=== PATIENT | female | born 1935 | race Caucasian/White ===

== ENCOUNTER → 2017-08-01 16:19 | Outpatient (CLI) | payer MEDICARE, SELFPAY ==
[2016-04-29 20:15] VITALS: BP 107/97; BP 146/96
[2016-05-03 08:00] VITALS: BP 141/85
[2017-03-28 08:34] VITALS: BP 102/59; BP 104/48; BP 114/54
[2017-08-01 15:12] VITALS: BP 145/67; BMI 31.4
[2017-08-01 17:36] LABS: Absolute Lymphocyte Count 1.52 X10^3/ul (0.83-4.51); Absolute Neutrophil Count 2.8 X10^3/uL (2.0-7.7); Basophil# 0.04 X10^3/uL; Basophil% 0.8 % (0-1); Differential Indicated SCAN CRITERIA MET; Eosinophil# 0.08 X10^3/uL; Eosinophils% 1.6 % (0-5); Hematocrit 27.4 % (37-47); Hemoglobin 7.7 g/dl (12.0-15.0); Lymphocyte # 1.52 X10^3/ul (4.0); Lymphocyte % 30.1 % (19-41); Mean Corp Hgb Conc 28.1 g/gl (32-36); Mean Corpuscular Hgb 19.6 pg (27.0-32.0); Mean Corpuscular Volume 69.9 fL (81-99); Monocyte# 0.59 X10^3/uL; Monocyte% 11.7 % (0-10); Neutrophil # 2.81 X10^3/uL (2.7-7.7); Neutrophil % 55.6 % (47-70); POSITIVE COUNT NO; POSITIVE DIFFERENTIAL NO; POSITIVE MORPHOLOGY YES; Platelet Count 305 K/mm3 (150-450); RBC Distribution Width CV 23.5 % (11.6-14.6); RBC Distribution Width SD 59.7 fl (35.1-43.9); Red Blood Count 3.92 M/mm3 (4.2-5.4); White Blood Count 5.1 K/mm3 (4.4-11.0)
[2017-08-01 17:57] LABS: ALB/GLOB Ratio 0.8 RATIO (0.9-2.4); AST(SGOT) 12 U/L (15-37); Alanine Aminotransfer ALT/SGPT 18 U/L (13-56); Albumin, Serum 3.3 g/dL (3.2-5.0); Alkaline Phosphatase 65 U/L (45-117); Anion Gap 8 (5-15); BUN 15 mg/dL (7-18); BUN/Creat Ratio 21.7 RATIO (10-20); Calcium,Total 8.5 mg/dL (8.5-10.1); Chloride 108 mmol/L (98-107); Creatinine, Serum 0.69 mg/dL (0.55-1.02); EST Glomerular Filtration Rate 87 mL/min (>60); Est Glom Filt Rate - Afr Amer 105 mL/min (>60); Ferritin 9 ng/mL (8-252); Globulin 3.9 g/dL (2.2-4.2); Glucose 85 mg/dL (70-110); Iron 12 ug/dL (50-170); Iron Binding Capacity,Total 457 ug/dL (250-450); Potassium 4.2 mmol/L (3.5-5.1); Protein, Total 7.2 g/dL (6.4-8.2); Sodium Level 142 mmol/L (136-145)
[2017-08-01 18:10] LABS: Differential Comment SCANNED
[2017-08-02 08:41] LABS: Vitamin B12 318 pg/mL (211-911)
== END ==
PROVIDERS: Internal Medicine Medical Oncology; Family Provider Family Medicine; PCP Family Medicine; Visit Provider Family Medicine
DX: D50.9 Iron deficiency anemia, unspecified (principal)
CPT/HCPCS: 80053; 82607; 82728; 82746; 83540; 83550; 85025

== ENCOUNTER → 2017-08-20 12:06 | Outpatient (CLI) | payer MEDICARE, SELFPAY ==
[2017-07-16 10:14] VITALS: BP 133/62; PULSE 61; RESP 17; TEMP 36.9; O2SAT 98; BMI 28.5
--- NOTE | 2017-07-16 10:38 | SDCEKG_ITS ---
Test Reason : PRE-OP Blood Pressure : / mmHG Vent. Rate : 056 BPM Atrial Rate : 056 BPM P-R Int : 168 ms QRS Dur : 074 ms QT Int : 436 ms P-R-T Axes : 056 023 055 degrees QTc Int : 420 ms Sinus bradycardia Otherwise normal ECG Confirmed by NAPOLEON LEE, BRITANY ([id number]), business editor DAVEY CERNA ([id number] on 07/18/2017 1:08:01 PM Referred By: SELVIN Confirmed By:BRITANY BENDER MD
[2017-07-16 12:56] LABS: Absolute Lymphocyte Count 1.19 X10^3/ul (0.83-4.51); Absolute Neutrophil Count 2.7 X10^3/uL (2.0-7.7); Basophil# 0.03 X10^3/uL; Basophil% 0.7 % (0-1); Eosinophil# 0.06 X10^3/uL; Eosinophils% 1.3 % (0-5); Hematocrit 23.5 % (37-47); Hemoglobin 6.5 g/dl (12.0-15.0); Lymphocyte # 1.19 X10^3/ul (4.0); Lymphocyte % 26.5 % (19-41); Mean Corp Hgb Conc 27.7 g/gl (32-36); Mean Corpuscular Hgb 18.5 pg (27.0-32.0); Mean Corpuscular Volume 66.8 fL (81-99); Mean Platelet Vol. 10.1 fl (6.2-12.0); Monocyte# 0.51 X10^3/uL; Monocyte% 11.4 % (0-10); Neutrophil # 2.69 X10^3/uL (2.7-7.7); Neutrophil % 59.9 % (47-70); Platelet Count 285 K/mm3 (150-450); RBC Distribution Width CV 19.7 % (11.6-14.6); RBC Distribution Width SD 47.7 fl (35.1-43.9); Red Blood Count 3.52 M/mm3 (4.2-5.4); White Blood Count 4.5 K/mm3 (4.4-11.0)
[2017-07-16 12:57] LABS: Differential Indicated SCAN CRITERIA MET; POSITIVE COUNT NO; POSITIVE DIFFERENTIAL NO; POSITIVE MORPHOLOGY YES
[2017-07-16 13:19] LABS: Anion Gap 10 (5-15); BUN 11 mg/dL (7-18); BUN/Creat Ratio 22.5 RATIO (10-20); Calcium,Total 8.5 mg/dL (8.5-10.1); Chloride 106 mmol/L (98-107); Creatinine, Serum 0.49 mg/dL (0.55-1.02); EST Glomerular Filtration Rate 129 mL/min (>60); Est Glom Filt Rate - Afr Amer 156 mL/min (>60); Glucose 80 mg/dL (70-110); Potassium 4.1 mmol/L (3.5-5.1); Sodium Level 140 mmol/L (136-145)
[2017-07-16 13:26] LABS: Anisocytosis 1+; Hypochromasia 3+; Microcytosis 2+; Platelet Estimate ADEQUATE (ADEQ); Schistocytes 1+
== END ==
PROVIDERS: Family Provider Family Medicine; PCP Family Medicine; Visit Provider Specialist
DX: Z01.818 Encounter for other preprocedural examination (principal)
CPT/HCPCS: 80048; 85025; 87081

== ENCOUNTER 2017-09-18 20:57 | Observation (INO) | payer MEDICARE, SELFPAY ==
[2017-09-18 21:00] VITALS: BP 147/59; PULSE 58; RESP 18; TEMP 36.4; O2SAT 99; BMI 29.9
--- NOTE | 2017-09-18 21:09 | CT_ITS ---
STUDY: CT CHEST WITH CONTRAST REASON FOR EXAM: Female, 82 years old. Chest pain after falling onto her walker. RADIATION DOSAGE (If Supplied By Facility): CTDIvol = ( 15.75 ) mGy, DLP = ( 1502.18 ) mGycm TECHNIQUE: Transaxial imaging was performed following intravenous administration of 100 ml of Isovue 300 contrast material. Multiplanar coronal and sagittal images were reformatted. Individualized dose optimization techniques were used for this CT. COMPARISON: Prior portable chest radiograph of April 29, 2016 FINDINGS: Negative for pneumothorax. Mild bibasilar dependent atelectatic versus chronic changes. Discrete linear area of atelectasis or scarring in the anterior right upper lobe. Minimal linear atelectasis or scarring in the lingula. 10 x 5 mm pulmonary nodule of the right upper lobe abutting the oblique fissure, image 46 series 6. Normal heart and pericardium. Large hiatal hernia. Normal hilar regions. Normal enhanced pulmonary arteries. There is atherosclerotic calcification of the aortic arch with tortuosity and elongation of the aortic arch and descending thoracic aorta. There is a mild angular deformity of the distal sternum a centimeter above the xiphoid which could be an acute sternal fracture however associated hematoma is not obvious. The remainder of the sternum and manubrium are intact. Negative for fracture of the ribs, clavicles or scapulas. Demineralized osseous structures. Multiple mild superior endplate compression deformities at T11, T10 T7 and T2 without an acute thoracic compression deformity. 11 x 10 mm millimeter and a 8 x 11 nodule of the left thyroid. CT/Chest WITH Contrast IMPRESSION: Slight angular or buckle-type deformity of the inferior sternum about 1 cm above the xiphoid consistent with a sternal fracture, indeterminate age. There does not appear to be a large associated retrosternal or chest wall hernia. Otherwise negative for acute thoracic fracture of the thoracic spine, manubrium, ribs, clavicle or scapulae. Mild bibasilar dependent atelectatic versus chronic changes. Additional discrete linear areas of atelectasis or scarring in the right middle lobe and lingula. Negative for major consolidation, pneumothorax or pleural effusion. 10 x 5 mm nodule of the right upper lobe. This is apparent on prior chest radiography of February 28, 2016 and appears stable. Large hiatal hernia. Atherosclerosis. There are a 11 x 10 mm and 8 x 11 mm nodules of the left thyroid. Nodules of this size require no specific follow-up unless otherwise clinically indicated. Electronically Signed: Joaquina Canales MD at 22:41 EDT , Service support ,
--- NOTE | 2017-09-18 21:09 | EKG12_ITS ---
Test Reason : Blood Pressure : / mmHG Vent. Rate : 063 BPM Atrial Rate : 063 BPM P-R Int : 178 ms QRS Dur : 076 ms QT Int : 418 ms P-R-T Axes : 078 021 050 degrees QTc Int : 427 ms Normal sinus rhythm Normal ECG Confirmed by TRINA RODGERS MD ([id number]), visual effects editor DAVEY CERNA ([id number] on 09/20/2017 2:46:23 PM Referred By: ETHEL Confirmed By:TRINA RODGERS MD
--- NOTE | 2017-09-18 21:09 | CT_ITS ---
STUDY: CT ABDOMEN AND PELVIS WITH CONTRAST REASON FOR EXAM: Female, 82 years old. Chest pain after falling onto her walker. RADIATION DOSAGE (If Supplied By Facility): CTDIvol = ( 15.75 ) mGy, DLP = ( 1502.18 ) mGycm TECHNIQUE: Transaxial images were obtained from the dome of the diaphragm to the symphysis pubis without oral contrast. 100 ml of Isovue 300 contrast was administered. Sagittal and coronal images were reconstructed. Individualized dose optimization techniques were used for this CT. COMPARISON: None. FINDINGS: Bibasilar atelectatic versus chronic changes. The visualized portions of the heart are within normal limits. Elongated right liver lobe, James's lobe normal variant. Multiple moderate size gallstones in a nondistended gallbladder. Normal spleen. Normal pancreas. Normal bilateral adrenal glands. 1 shallow cortical scar of the upper mid pole of the right kidney and one small mid pole exophytic cyst. Otherwise normal right kidney without hydronephrosis or stones. Normal size of the left kidney. 1.4 cm simple cyst of the midpole and several additional subcentimeter simple cysts. Negative for hydronephrosis or stones. Large hiatal hernia. Otherwise unremarkable stomach. Normal small intestine. Diverticulosis of the colon without evidence of acute diverticulitis. There is non-visualization of the appendix. There is diffuse atherosclerotic calcification of the abdominal aorta, without a demonstrated aneurysm. Normal inferior vena cava. Normal retroperitoneum. Nondistended intact urinary bladder. 1.6 cm left ovarian or paraovarian cyst. Small fatty umbilical hernia. Negative for a large abdominal wall hematoma. Demineralized osseous structures. Old superior endplate compression deformities of L4 T10 and T11. Disc related central endplate compression of L3. Negative for acute fracture of the lumbar spine. The negative for an inferior rib fracture. Negative for fracture of the pelvis, sacrum or hips. Advanced osteoarthritis of the left hip. CT/Abdomen/Pelvis W IV Cont ONLY IMPRESSION: No acute solid organ or bowel related injury. Negative for acute fracture of the lumbar spine, lower ribs, sacrum, pelvis or hips. Old compression deformities and degenerative changes as stated above. Large hiatal hernia Cholelithiasis Simple renal cysts bilaterally Diverticulosis Atherosclerosis 1.6 cm left ovarian or paraovarian cyst Small fatty umbilical hernia. Electronically Signed: Joaquina Canales MD at 22:26 EDT , Service support ,
[2017-09-18] MEDS: 0.9% Normal Saline 1,000 ML 150 ML IV (21:20)
[2017-09-18 21:53] LABS: ALB/GLOB Ratio 0.8 RATIO (0.9-2.4); AST(SGOT) 22 U/L (15-37); Alanine Aminotransfer ALT/SGPT 20 U/L (13-56); Albumin, Serum 3.3 g/dL (3.2-5.0); Alkaline Phosphatase 72 U/L (45-117); Anion Gap 6 (5-15); BUN 14 mg/dL (7-18); BUN/Creat Ratio 20.3 RATIO (10-20); Calcium,Total 8.6 mg/dL (8.5-10.1); Chloride 105 mmol/L (98-107); Creatinine, Serum 0.69 mg/dL (0.55-1.02); EST Glomerular Filtration Rate 87 mL/min (>60); Est Glom Filt Rate - Afr Amer 105 mL/min (>60); Globulin 4.1 g/dL (2.2-4.2); Glucose 92 mg/dL (74-106); Lipase 246 U/L (73-393); Potassium 4.7 mmol/L (3.5-5.1); Protein, Total 7.4 g/dL (6.4-8.2); Sodium Level 140 mmol/L (136-145)
[2017-09-18 22:00] LABS: Absolute Lymphocyte Count 1.18 X10^3/ul (0.83-4.51); Absolute Neutrophil Count 6.9 X10^3/uL (2.0-7.7); Basophil# 0.02 X10^3/uL; Basophil% 0.2 % (0-1); Eosinophil# 0.08 X10^3/uL; Eosinophils% 0.9 % (0-5); Hematocrit 39.9 % (37-47); Hemoglobin 12.1 g/dl (12.0-15.0); Lymphocyte # 1.18 X10^3/ul (4.0); Lymphocyte % 13.1 % (19-41); Mean Corp Hgb Conc 30.3 g/gl (32-36); Mean Corpuscular Hgb 26.5 pg (27.0-32.0); Mean Corpuscular Volume 87.5 fL (81-99); Monocyte# 0.85 X10^3/uL; Monocyte% 9.4 % (0-10); Neutrophil # 6.85 X10^3/uL (2.7-7.7); Neutrophil % 76.2 % (47-70); Platelet Count 218 K/mm3 (150-450); Red Blood Count 4.56 M/mm3 (4.2-5.4)
[2017-09-18] MEDS: fentaNYL 100 MCG/2 ML Ampul 25 MCG IV (22:06)
[2017-09-18 22:22] LABS: Differential Indicated SCAN CRITERIA MET; POSITIVE COUNT NO; POSITIVE DIFFERENTIAL NO; POSITIVE MORPHOLOGY YES
[2017-09-18 22:31] LABS: Differential Comment SCANNED
[2017-09-18 23:02] VITALS: BP 145/58; PULSE 62; RESP 18; O2SAT 94
[2017-09-18 23:17] VITALS: BP 134/69; PULSE 63; RESP 18; O2SAT 94
--- NOTE | 2017-09-18 23:19 | ED.VISSUMM ---
- ER Visit Summary Date of Service: 09/18/17 Chief Complaint: [Fall and injury to chest] History of Present Illness: The patient is a 82 F ] presents to the emergency department with a fall that occurred approximately 5:30 PM. Patient was bending over reaching into the pocket of her walker when she lost her balance and fell on top of her walker injuring her chest. Patient complains of pain with movement and deep breath. Patient denies any nausea or vomiting. Describes the pain as spasms and severe. Patient denies striking her head. Denies loss of consciousness. Denies any neck pain. Patient denies any vomiting. Patient lives at assisted living facility and normally uses a walker to ambulate. Physical Examination: [HEENT-PERRLA, EOMI. Cranial nerves II through XII grossly intact. TMs clear. Mucous membranes moist. No adenopathy. No C-spine tenderness on palpation with normal active range of motion. Cardiovascular-regular rate and rhythm without murmur or ectopy Lungs-clear to auscultation, chest wall stable without crepitus or subcu emphysema. Patient has tenderness to palpation over the sternum to inferior aspect. No significant ecchymosis or bruising noted. Abdomen-normoactive bowel sounds, soft. Patient has tenderness to the epigastric and right upper quadrant. Patient is guarding. There is no rebound, rigidity or peritoneal signs. Extremities-intact ?4, normal range of motion, normal pulses, atraumatic] Test Results: [EKG obtained on arrival showed a sinus rhythm with a ventricular rate of 63 bpm with no acute ST segment changes. CBC with differential showed a white count of 9.0, hemoglobin 12, hematocrit 40, platelets 218. Chemistries were normal. Liver enzymes were normal. CT scan of the abdomen and pelvis showed a large hiatal hernia, cholelithiasis, diverticulosis. Patient CT chest showed a suspected fracture of the inferior portion of the sternum. No significant hematoma noted. No pneumothorax or rib fracture is noted. Patient had some thyroid nodules noted and the nodule in the right upper lobe that appeared stable.] Emergency Department Course and Treatment: [Patient was medicated with fentanyl initially and continued to complain of pain therefore she was given morphine and Zofran.] Treatment Plan: [Admit for pain control] Disposition: [Admit] Impression: [Mechanical fall Sternum fracture Intractable pain] This note was generated with Spritzation software. It may contain incorrect words, spelling, and punctuation that were not noted in review of the chart prior to signing ED Disposition - Plan for ED Patient: Chief Complaint: Fall Referrals: Jose Aguilar MD [Primary Care Provider] -
--- NOTE | 2017-09-18 23:24 | ED.DCSUM_ITS ---
- ER Visit Summary Date of Service: 09/18/17 Chief Complaint: [Fall and injury to chest] History of Present Illness: The patient is a 82 F ] presents to the emergency department with a fall that occurred approximately 5:30 PM. Patient was bending over reaching into the pocket of her walker when she lost her balance and fell on top of her walker injuring her chest. Patient complains of pain with movement and deep breath. Patient denies any nausea or vomiting. Describes the pain as spasms and severe. Patient denies striking her head. Denies loss of consciousness. Denies any neck pain. Patient denies any vomiting. Patient lives at assisted living facility and normally uses a walker to ambulate. Physical Examination: [HEENT-PERRLA, EOMI. Cranial nerves II through XII grossly intact. TMs clear. Mucous membranes moist. No adenopathy. No C- spine tenderness on palpation with normal active range of motion. Cardiovascular-regular rate and rhythm without murmur or ectopy Lungs-clear to auscultation, chest wall stable without crepitus or subcu emphysema. Patient has tenderness to palpation over the sternum to inferior aspect. No significant ecchymosis or bruising noted. Abdomen-normoactive bowel sounds, soft. Patient has tenderness to the epigastric and right upper quadrant. Patient is guarding. There is no rebound , rigidity or peritoneal signs. Extremities-intact ?4, normal range of motion, normal pulses, atraumatic] Test Results: [EKG obtained on arrival showed a sinus rhythm with a ventricular rate of 63 bpm with no acute ST segment changes. CBC with differential showed a white count of 9.0, hemoglobin 12, hematocrit 40, platelets 218. Chemistries were normal. Liver enzymes were normal. CT scan of the abdomen and pelvis showed a large hiatal hernia, cholelithiasis, diverticulosis. Patient CT chest showed a suspected fracture of the inferior portion of the sternum. No significant hematoma noted. No pneumothorax or rib fracture is noted. Patient had some thyroid nodules noted and the nodule in the right upper lobe that appeared stable.] Emergency Department Course and Treatment: [Patient was medicated with fentanyl initially and continued to complain of pain therefore she was given morphine and Zofran.] Treatment Plan: [Admit for pain control] Disposition: [Admit] Impression: [Mechanical fall Sternum fracture Intractable pain] This note was generated with Agentrunation software. It may contain incorrect words, spelling, and punctuation that were not noted in review of the chart prior to signing ED Disposition - Plan for ED Patient: Chief Complaint: Fall Referrals: Jose Agiular MD [Primary Care Provider] -
[2017-09-18] MEDS: Morphine 4 MG/ML Syringe IV (23:29)
[2017-09-18] MEDS: Ondansetron 4 MG/2 ML Vial IV (23:29)
--- NOTE | 2017-09-18 23:34 | PCM.HP.STD ---
Problem List (1) Sternal fracture Status: Acute (2) Iron deficiency anemia Status: Resolved Qualifiers: History of Present Illness Date of Admission: 09/18/17 Chief Complaint: fall and chest pain. The patient is a 82 year old F was leaning over her walker to get some the bag and then fell forward hitting her chest on her walker. Patient did not hit her head nor lose consciousness. Patient has been having severe anterior chest pain since then. Patient presented to the emergency room for the severe pain. He underwent a workup that did show a sternal fracture on chest CT. Patient received fentanyl and morphine in the emergency room and is feeling better but is a little bit groggy with the medications. Patient denies falls but looking back patient was hospitalized 2016 and have the rhabdomyolysis. [] Past Medical History Past Medical History (Chronic Problems): Chronic Problems (Last Reviewed 08/29/17 @ 10:54 by Anushka Stein) history of left radius and ulnar fracture (Chronic) Allergies No Known Allergies Allergy (Verified 09/18/17 21:05) Home Medications: Ambulatory Orders Medication Instructions Recorded Cholecalciferol (Vitamin D3) 2,000 units PO DAILY 08/01/17 [Vitamin D3] One Daily Womens 50 Plus Tab PO DAILY 08/01/17 Surgical History: no surgical history Psychiatric History: No pertinent psych hx Smoking Status: Never smoker Tobacco Use: Non-smoker Alcohol: None Drugs: None - *Family History Maternal History Items: No pertinent history, - - No heart disease Review of Systems Constitutional: Denies: Chills, Fever, Weight Change Eyes: Denies: Blurred vision, Double vision HEENT: Denies: Head Aches, Sinus Congestion, Sinus Drainage Cardiovascular: Reports: Chest Pain - Status post fall. Denies: Palpitations Respiratory: Denies: Cough, Shortness of breath at rest, Sputum production Gastrointestinal: Denies: Abdominal Pain, Nausea, Vomiting Genitourinary: Denies: Dysuria Musculoskeletal: Denies: Joint Pain, Joint Tenderness Skin: Denies: Rash, Wounds Neurological: Denies: Numbness, Tingling, Focal weakness Psychiatric: Denies: Anxiety, Depression Hematologic/ Lymphatic: Denies: Easy Bruising, Easy Bleeding, Hx of blood clot VTE Information - Inpt Only VTE Present on Admission: No VTE Pharm Prophylaxis ordered?: Yes Patient Problems: Active and Suspected Problems (Last Reviewed 08/29/17 @ 10:54 by Anushka Stein) Sternal fracture (Acute) - Physical Exam General: Alert, No apparent distress, - - Slightly groggy. HEENT: Atraumatic, Normocephalic, - - No scleral icterus Oral: Moist Mucosa, No Gingival or Mucosal Lesions/ Ulcerations Neck: No Nodes, Thyroid Normal Size and Texture Lungs: Clear to auscultation, Normal air movement, No rhonchi, No wheeze Cardiovascular: Regular rate, Regular Rhythm, Normal S1, Normal S2, No murmurs Abdomen: Bowel Sounds Present, Soft, Non Tender, Non-Distended, No Hepato-splenomegaly Extremities: No edema, No Calf Tenderness Skin: No rashes, No breakdown Musculoskeletal: - - Tenderness to very mild palpation of the anterior sternum Psych/Mental Status: Normal Affect, Appropriate Vital Signs Temp Pulse Resp BP Pulse Ox 36.4 C L 63 18 134/69 H 94 09/18/17 21:00 09/18/17 23:17 09/18/17 23:17 09/18/17 23:17 09/18/17 23:17 Oxygen Delivery Method Room Air Weight: 79.2 kg Body Mass Index (BMI) 29.9 Laboratory Tests Past 24 Hrs 09/18/17 09/18/17 21:17 21:17 WBC 9.0 RBC 4.56 Hgb 12.1 Hct 39.9 MCV 87.5 MCH 26.5 L MCHC 30.3 L RDW TNP RDW Differential TNP Plt Count 218 MPV TNP Immature Gran % (Auto) 0.200 Neut % (Auto) 76.2 H Lymph % (Auto) 13.1 L [place] % (Auto) 9.4 Eos % (Auto) 0.9 Baso % (Auto) 0.2 Absolute Neuts (auto) 6.9 Absolute Lymphs (auto) 1.18 Total Counted Not Reportable Differential Comment SCANNED Sodium 140 Potassium 4.7 Chloride 105 Carbon Dioxide 29.0 Anion Gap 6 BUN 14 Creatinine 0.69 Estim Creat Clear Calc 38.10 Est GFR (MDRD) Af Amer 105 Est GFR (MDRD) Non-Af 87 BUN/Creatinine Ratio 20.3 H Glucose 92 Calcium 8.6 Total Bilirubin 0.20 AST 22 ALT 20 Alkaline Phosphatase 72 Troponin I < 0.02 Total Protein 7.4 Albumin 3.3 Globulin 4.1 Albumin/Globulin Ratio 0.8 L Lipase 246 Assessment/Plan Active and Suspected Problems (Last Reviewed 08/29/17 @ 10:54 by Anushka Stein) Sternal fracture (Acute) 1. Sternal fracture That is post fall onto her walker Continue with pain control but patient little bit groggy some prefer to use nonnarcotics for pain control. Patient will have oxycodone as needed but in the meantime patient will have a Tylenol and Toradol. Given the patient's fall history and fractures, will check a 25 hydroxy vitamin D level 2. Debility This was more of a mechanical fall that the patient had but given the fact patient uses a walker and she has a sternal fracture patient is can be more limited in regards to her mobility and putting pressure with her arms on the walker. Will have physical and occupational therapy evaluate the patient 3. DVT prophylaxis with Lovenox 4. Disposition: Patient is under observation status. This is brought up to the patient and will have case management look into what options are and if this will she will be covered for shelter facility upon discharge. Patient has no one available to help her 24 7. Other possibilities could be the facility increased services but once again will defer to case management in regards to this. 5. Advance directives: Discussed CPR and chemical ventilation with the patient. Patient is unsure what she wants at this time. Informed the patient and her friend that do not dissipate in these issues during his hospitalization but is certainly good conversation have in the future so that her wishes are fully addressed. Therefore, patient will be full CODE STATUS. Code Visit OBSV E&M: 80490 Initial observation care L2
--- NOTE | 2017-09-18 23:40 | HP.PCM_ITS ---
Problem List (1) Sternal fracture Status: Acute (2) Iron deficiency anemia Status: Resolved Qualifiers: History of Present Illness Date of Admission: 09/18/17 Chief Complaint: fall and chest pain. The patient is a 82 year old F was leaning over her walker to get some the bag and then fell forward hitting her chest on her walker. Patient did not hit her head nor lose consciousness. Patient has been having severe anterior chest pain since then. Patient presented to the emergency room for the severe pain. He underwent a workup that did show a sternal fracture on chest CT. Patient received fentanyl and morphine in the emergency room and is feeling better but is a little bit groggy with the medications. Patient denies falls but looking back patient was hospitalized 2016 and have the rhabdomyolysis. [] Past Medical History Past Medical History (Chronic Problems): Chronic Problems (Last Reviewed 08/29/17 @ 10:54 by Anushka Stein) history of left radius and ulnar fracture (Chronic) Allergies No Known Allergies Allergy (Verified 09/18/17 21:05) Home Medications: Ambulatory Orders Medication Instructions Recorded Cholecalciferol (Vitamin D3) 2,000 units PO DAILY 08/01/17 [Vitamin D3] One Daily Womens 50 Plus Tab PO DAILY 08/01/17 Surgical History: no surgical history Psychiatric History: No pertinent psych hx Smoking Status: Never smoker Tobacco Use: Non-smoker Alcohol: None Drugs: None - *Family History Maternal History Items: No pertinent history, - - No heart disease Review of Systems Constitutional: Denies: Chills, Fever, Weight Change Eyes: Denies: Blurred vision, Double vision HEENT: Denies: Head Aches, Sinus Congestion, Sinus Drainage Cardiovascular: Reports: Chest Pain - Status post fall. Denies: Palpitations Respiratory: Denies: Cough, Shortness of breath at rest, Sputum production Gastrointestinal: Denies: Abdominal Pain, Nausea, Vomiting Genitourinary: Denies: Dysuria Musculoskeletal: Denies: Joint Pain, Joint Tenderness Skin: Denies: Rash, Wounds Neurological: Denies: Numbness, Tingling, Focal weakness Psychiatric: Denies: Anxiety, Depression Hematologic/ Lymphatic: Denies: Easy Bruising, Easy Bleeding, Hx of blood clot VTE Information - Inpt Only VTE Present on Admission: No VTE Pharm Prophylaxis ordered?: Yes Patient Problems: Active and Suspected Problems (Last Reviewed 08/29/17 @ 10:54 by Anushka Stein) Sternal fracture (Acute) - Physical Exam General: Alert, No apparent distress, - - Slightly groggy. HEENT: Atraumatic, Normocephalic, - - No scleral icterus Oral: Moist Mucosa, No Gingival or Mucosal Lesions/ Ulcerations Neck: No Nodes, Thyroid Normal Size and Texture Lungs: Clear to auscultation, Normal air movement, No rhonchi, No wheeze Cardiovascular: Regular rate, Regular Rhythm, Normal S1, Normal S2, No murmurs Abdomen: Bowel Sounds Present, Soft, Non Tender, Non-Distended, No Hepato- splenomegaly Extremities: No edema, No Calf Tenderness Skin: No rashes, No breakdown Musculoskeletal: - - Tenderness to very mild palpation of the anterior sternum Psych/Mental Status: Normal Affect, Appropriate Vital Signs Temp Pulse Resp BP Pulse Ox 36.4 C L 63 18 134/69 H 94 09/18/17 21:00 09/18/17 23:17 09/18/17 23:17 09/18/17 23:17 09/18/17 23:17 Oxygen Delivery Method Room Air Weight: 79.2 kg Body Mass Index (BMI) 29.9 Laboratory Tests Past 24 Hrs 09/18/17 09/18/17 21:17 21:17 WBC 9.0 RBC 4.56 Hgb 12.1 Hct 39.9 MCV 87.5 MCH 26.5 L MCHC 30.3 L RDW TNP RDW Differential TNP Plt Count 218 MPV TNP Immature Gran % (Auto) 0.200 Neut % (Auto) 76.2 H Lymph % (Auto) 13.1 L [place] % (Auto) 9.4 Eos % (Auto) 0.9 Baso % (Auto) 0.2 Absolute Neuts (auto) 6.9 Absolute Lymphs (auto) 1.18 Total Counted Not Reportable Differential Comment SCANNED Sodium 140 Potassium 4.7 Chloride 105 Carbon Dioxide 29.0 Anion Gap 6 BUN 14 Creatinine 0.69 Estim Creat Clear Calc 38.10 Est GFR (MDRD) Af Amer 105 Est GFR (MDRD) Non-Af 87 BUN/Creatinine Ratio 20.3 H Glucose 92 Calcium 8.6 Total Bilirubin 0.20 AST 22 ALT 20 Alkaline Phosphatase 72 Troponin I < 0.02 Total Protein 7.4 Albumin 3.3 Globulin 4.1 Albumin/Globulin Ratio 0.8 L Lipase 246 Assessment/Plan Active and Suspected Problems (Last Reviewed 08/29/17 @ 10:54 by Anushka Stein) Sternal fracture (Acute) 1. Sternal fracture * That is post fall onto her walker * Continue with pain control but patient little bit groggy some prefer to use nonnarcotics for pain control. Patient will have oxycodone as needed but in the meantime patient will have a Tylenol and Toradol. * Given the patient's fall history and fractures, will check a 25 hydroxy vitamin D level 2. Debility * This was more of a mechanical fall that the patient had but given the fact patient uses a walker and she has a sternal fracture patient is can be more limited in regards to her mobility and putting pressure with her arms on the walker. * Will have physical and occupational therapy evaluate the patient 3. DVT prophylaxis with Lovenox 4. Disposition: Patient is under observation status. This is brought up to the patient and will have case management look into what options are and if this will she will be covered for nursing home facility upon discharge. Patient has no one available to help her 24 7. Other possibilities could be the facility increased services but once again will defer to case management in regards to this. 5. Advance directives: Discussed CPR and chemical ventilation with the patient. Patient is unsure what she wants at this time. Informed the patient and her friend that do not dissipate in these issues during his hospitalization but is certainly good conversation have in the future so that her wishes are fully addressed. Therefore, patient will be full CODE STATUS. Code Visit OBSV E&M: 59704 Initial observation care L2
[2017-09-18 23:58] VITALS: BP 131/57; PULSE 70; RESP 20; TEMP 36.8; O2SAT 93
[2017-09-18 23:59] VITALS: BMI 27.6
[2017-09-19 00:05] VITALS: BMI 27.6
[2017-09-19] MEDS: Ketorolac 15 MG/ML Vial IV ×2 (03:38→09:54)
[2017-09-19] MEDS: 0.9% NaCl Peripheral Flush Adult/Peds IV ×2 (03:38→09:54)
[2017-09-19 06:00] VITALS: BP 145/55; PULSE 63; RESP 16; TEMP 36.3; O2SAT 96
[2017-09-19] MEDS: Multivitamins,Therapeutic Tablet 1 TABLET PO (08:04)
[2017-09-19 08:50] VITALS: PULSE 64
[2017-09-19] MEDS: Acetaminophen 500 MG Tablet 1000 MG PO ×3 (09:55→21:55)
--- NOTE | 2017-09-19 10:28 | CASEMGMT ---
SW spoke w/pt in room, pt is from [facility]. Pt is not certain if she can return to [place], if skilled time is needed, pt would want to go to [facility] skilled. PT/OT is pending, SW explained will follow up w/her after PT/OT, and follow up w/CC also to see what they think, if pt can return to [place] or needs to go to the halfway skilled for a short time. SW will continue to follow. ROXY Pierce, DIRECTOR OF CATH LAB
--- NOTE | 2017-09-19 11:42 | CASEMGMT ---
Addendum entered by Karly Nicolas 09/19/17 15:53: No precert has yet been attained, SW did call and leave a message w/[facility]. It is anticipated pt will be here until tomorrow. ROXY Pierce, THERAPIST PHYS Original Note: Addendum entered by Karly Nicolas 09/19/17 13:07: SW completed PAS/RR with results, will be sent w/pt to SNF at discharge. ROXY Pierce, [place] Original Note: Addendum entered by Karly Nicolas 09/19/17 12:51: SW spoke w/Jonna at [facility], they can take pt and she will start precert. SW will continue to follow, did let pt know that [facility] can take pt and will start precert. ROXY Pierce, THERAPIST PHYS Original Note: Pt spoke w/PT/OT and does not feel she can manage at [place], wants to go to [facility] skilled, PT/OT recommending the same. SW called Flori at [facility], message left and referral faxed. SW spoke w/pt, she is in agreement with going back skilled to the long term side, SW explained will let her know when SW hears from [facility] regarding availability. SW inquired if she would like SW to call her son, pt states no. SW will continue to follow, waiting for call back from Flori at [facility]. ROXY Pierce, [place]
[2017-09-19 11:46] VITALS: BP 121/64; PULSE 65; RESP 16; TEMP 36.6; O2SAT 95
--- NOTE | 2017-09-19 14:20 | PCM.PROGNOTE ---
<Toni Jackson - Last Filed: 09/19/17 14:20> Patient Problems: Active and Suspected Problems (Last Reviewed 08/29/17 @ 10:54 by Anushka Stein) Sternal fracture (Acute) Subjective: Patient admitted to the hospital after falling and striking her chest on her walker and having a sternal fracture. She has no pain at rest. She still has chest pain with most movements. She is waiting to be evaluated by physical therapy. She denies shortness of breath, cough. We discussed the finding of her large hiatal hernia on her CT she is, she says she is aware of this, she denies having any problems with it in the past and has no symptoms of acid reflux. - Physical Exam General: Alert, Oriented x3, Cooperative HEENT: Atraumatic, PERRLA, EOMI, Normocephalic Neck: Supple, No JVD, Negative Carotid Bruits Lungs: Clear to auscultation, Normal air movement Cardiovascular: Regular rate, No murmurs Abdomen: Bowel Sounds Present, Soft, Non Tender Extremities: No edema, Capillary Refill Less than 3 Seconds Skin: No rashes, No breakdown Musculoskeletal: No Tenderness to Palpation of Joints or Extremities Neurological: Cranial nerves II-XII grossly intact Psych/Mental Status: Normal Affect, Appropriate Vital Signs Temp Pulse Resp BP Pulse Ox 97.8 F 65 16 121/64 H 95 09/19/17 11:46 09/19/17 11:46 09/19/17 11:46 09/19/17 11:46 09/19/17 11:46 Oxygen Delivery Method Room Air Weight: 73 kg Body Mass Index (BMI) 27.6 Intake and Output for Last 24 Hours 09/17/17 09/18/17 09/19/17 23:59 23:59 23:59 Intake Total 550 / 550 Balance 550 / 550 Laboratory Tests Past 24 Hrs 09/19/17 05:42 Vitamin D 25-Hydroxy Pending Medical Necessity - Tobacco Use Smoking Status: Never smoker Tobacco Use: Non-smoker Assessment/Plan Active and Suspected Problems (Last Reviewed 08/29/17 @ 10:54 by Anushka Stein) Sternal fracture (Acute) 1. Sternal fracture from mechanical fall and a walker-PT OT eval's. As needed pain medications as ordered. -CT of the chest is consistent with sternal fracture 1 cm above the xiphoid, also demonstrates 10 x 5 mm nodule of the right upper lobe that is unchanged compared to imaging from February 28, 2016, large hiatal hernia, atherosclerosis, nodules of the left thyroid that are noted by the radiologist to require no specific follow-up unless otherwise clinically indicated. Her CT of the abdomen and pelvis shows large hiatal hernia, cholelithiasis, simple renal cyst bilaterally, diverticulosis, atherosclerosis, 1.6 cm left ovarian or paraovarian cyst, small fatty umbilical hernia. -Her lab work is unremarkable. -Vitamin D levels pending. Continue prior dose. 2. Debility with mechanical fall at home-PT OT DVT prophylaxis: Lovenox Disposition: PTOT eval, consider placement. This patient was seen by Toni Jackson PA-C under the supervision of Doctor Reese. <Munira Leigh - Last Filed: 09/19/17 15:37> - Physical Exam Vital Signs Temp Pulse Resp BP Pulse Ox 97.0 F L 63 18 144/69 H 94 09/19/17 14:51 09/19/17 14:51 09/19/17 14:51 09/19/17 14:51 09/19/17 14:51 Oxygen Delivery Method Room Air Weight: 73 kg Body Mass Index (BMI) 27.6 Intake and Output for Last 24 Hours 09/17/17 09/18/17 09/19/17 23:59 23:59 23:59 Intake Total 550 / 550 Balance 550 / 550 Laboratory Tests Past 24 Hrs 09/19/17 05:42 Vitamin D 25-Hydroxy Pending Assessment/Plan Patient was seen and examined independently a physician economic research assistant, Toni Jackson. I agree with a interval, physical exam assessment and plan. Patient states the pain is 4 out of 10. She lives alone at home and has not gotten much help. Denies any dizziness or palpitations or shortness of breath. Not on oxygen, appears comfortable sitting in a chair. Waiting for physical therapy to work with her. Would add incentive spirometer and scheduled Tylenol 1000 mg p.o. 3 times daily with as needed oxycodone. Code Visit Inpatient E&M: 98935 Subs Hosp L2 OBSV E&M: 36123 Subsequent observation care L3
[2017-09-19 14:51] VITALS: BP 144/69; PULSE 63; RESP 18; TEMP 36.1; O2SAT 94
--- NOTE | 2017-09-19 15:19 | CHAPLAIN ---
Type of Pastoral Visit _x__ Initial Visit ___ Follow-up Visit ___ On-call Visit ___ General Patient Visit ___ Spiritual Assessment ___ Family Conference ___ Bereavement ___ Rapid Response ___ Code Blue ___ Other (describe below) Pastoral Care Referral From _x__ Patient ___ Family ___ Nurse ___ Physician ___ Cardiothoracic Physiotherapist ___ Podiatrist Assistant ___ Other (describe below) Sacrament/Intervention _x__ Active listening ___ Anointing ___ Scientology ___ Bereavement ___ Communion ___ Shila exploration ___ _x__ Life review _x__ Prayer ___ Reconciliation ___ Sacrament of Sick _x__ Supportive presence ___ Wedding ___ Other (describe below) Pastoral Comments
[2017-09-19 20:21] VITALS: BP 134/54; PULSE 69; RESP 16; TEMP 36.6; O2SAT 97
[2017-09-20 02:20] VITALS: BP 151/64; PULSE 70; RESP 16; TEMP 36.8; O2SAT 93
[2017-09-20] MEDS: Enoxaparin 40 MG/0.4 ML Syringe SC (05:29)
[2017-09-20] MEDS: Acetaminophen 500 MG Tablet 1000 MG PO ×2 (05:30→14:59)
[2017-09-20 08:20] VITALS: BP 138/69; PULSE 69; RESP 20; TEMP 36.4; O2SAT 92
[2017-09-20] MEDS: Multivitamins,Therapeutic Tablet 1 TABLET PO (08:21)
[2017-09-20 09:38] LABS: Vitamin D,25 Hydroxy 26.5 ng/mL (29.95-100.01)
--- NOTE | 2017-09-20 13:21 | CASEMGMT ---
Addendum entered by Nubia Lorenz 09/20/17 14:59: Social Work Pt has been discharged. Orders faxed to [facility]. [facility] has no availability therefore transportation arranged with [facility] [place] [place] [facility] with 4 pm worm picker. Pt notified and is agreeable to plan. Pt states she will notify family. RN notified of d/c time. No further needs. SARAH Everett Original Note: Social Work Spoke with Flori at [facility] and insurance auth has been given. Pt can go to [facility] SNF today. Physician informed. SW met with pt and informed that insurance has given preauth and a bed is available with likely d/c today. Pt is agreeable and [facility]. Pt states she will notify her family of d/c. SW will follow for d/c arrangements. SARAH Everett
--- NOTE | 2017-09-20 14:38 | PCM.TXEXTCAR ---
- Diet 09/18/17 23:31 Diet: Regular Diet Food consistency:: Regular Liquid Consistency:: Regular/Thin - Routine Orders/Code Status Suppository Type: Dulcolax 10mg Suppository Frequency: Daily PRN Routine Lab Work: CBC, BMP Code Status: Full Code - Therapies Physical Therapy: Eval and Treat - Problem/Diagnosis (1) Sternal fracture Status: Acute Current Visit: Yes (2) Debility Status: Chronic Current Visit: Yes (3) Vitamin D deficiency Status: Chronic Current Visit: Yes - Allergies/Procedures Done in Hospital Allergies/Adverse Reactions: Allergies No Known Allergies Allergy (Verified 09/18/17 21:05) - Type of Care/Length of Stay Estimated LOS: Convalescent Care Less Than 30 days Type of Care Needed: Skilled Rehab Potential: Good Prognosis: Good - Additional Orders/Day of Discharge Day of Discharge: 09/20/17 - Follow Up Care Primary Care Physician: Jose Aguilar MD [Primary Care Provider] - Please follow up with your Primary Care Physician in: 2 weeks
--- NOTE | 2017-09-20 14:41 | PCM.DC.SUM ---
Discharge Date and Diagnosis - Problem List Patient Problems: Active and Suspected Problems (Last Reviewed 08/29/17 @ 10:54 by Anushka Stein) Sternal fracture (Acute) Date of Admission: 09/18/17 Date of Discharge: 09/20/17 - Primary Discharge Diagnosis Active and Suspected Problems (Last Reviewed 08/29/17 @ 10:54 by Anushka Stein) Sternal fracture (Acute) 2/2 mechanical fall at home Debility Vitamin D deficiency - Secondary Discharge Diagnosis Chronic Problems (Last Reviewed 08/29/17 @ 10:54 by Anushka Stein) Debility (Chronic) Vitamin D deficiency (Chronic) history of left radius and ulnar fracture (Chronic) Hospital Course and Treatment Imaging Results: CT/Abdomen/Pelvis W IV Cont ONLY IMPRESSION: No acute solid organ or bowel related injury. Negative for acute fracture of the lumbar spine, lower ribs, sacrum, pelvis or hips. Old compression deformities and degenerative changes as stated above. Large hiatal hernia Cholelithiasis Simple renal cysts bilaterally Diverticulosis Atherosclerosis 1.6 cm left ovarian or paraovarian cyst Small fatty umbilical hernia. CT/Chest WITH Contrast IMPRESSION: Slight angular or buckle-type deformity of the inferior sternum about 1 cm above the xiphoid consistent with a sternal fracture, indeterminate age. There does not appear to be a large associated retrosternal or chest wall hernia. Otherwise negative for acute thoracic fracture of the thoracic spine, manubrium, ribs, clavicle or scapulae. Mild bibasilar dependent atelectatic versus chronic changes. Additional discrete linear areas of atelectasis or scarring in the right middle lobe and lingula. Negative for major consolidation, pneumothorax or pleural effusion. 10 x 5 mm nodule of the right upper lobe. This is apparent on prior chest radiography of February 28, 2016 and appears stable. Large hiatal hernia. Atherosclerosis. There are a 11 x 10 mm and 8 x 11 mm nodules of the left thyroid. Nodules of this size require no specific follow-up unless otherwise clinically indicated. Operations: None Procedures: None Summary of Care Provided: Physical exam on day of discharge: General: Resting comfortably NAD Psych: A/Ox3 normal affect HEENT: PEARRLA AT NC Neck: Supple NT CV: RRR no m/t/r/g/h Resp: CTA Abd: [id number] Soft NT no guarding or rigidity Ext: DP2+= no edema Skin: W/D normal turgor Lymph/Heme: No active bleeding or adenopathy Neuro: CN2-12 intact Hospital course: The patient is a 82 year old F who presented to the ER with chest pain after a mechanical fall at home. She was walking with her walker and fell forward striking her chest on the walker. She had severe pain and a CT of the chest revealed a sternal fracture. As she was weak and falling at home she was admitted to the hospital and seen by PT and OT. She was on Vitamin D for deficiency, and a repeat Vit D level revealed deficience - increased her home dose. She qualified for SNF with PT and OT and was discharged to SNF in stable condition. This patient was seen by Toni Jackson PA-C under the supervision of Doctor Leigh. [] Discharge Diet: No Restrictions Home Medications: Medications to take at Discharge Cholecalciferol (Vitamin D3) [Vitamin D3] 2,000 units PO DAILY 08/01/17 One Daily Womens 50 Plus Tab 1 tab PO DAILY 08/01/17 Acetaminophen [Tylenol] 1,000 mg PO Q8 tablet 09/20/17 Cholecalciferol (VIT D3) [Vitamin D3] 4,000 unit PO DAILY #30 tablet 09/20/17 Multivitamins,Therapeutic [Multivitamin] 1 tab PO DAILYCM #20 tab 09/20/17 Oxycodone [Oxyir] 5 mg PO Q4H PRN PRN 5 Days #20 tab 09/20/17 Following Prescrptions Were Given to Patient: Cholecalciferol (VIT D3) [Vitamin D3] 4,000 unit PO DAILY #30 tablet Multivitamins,Therapeutic [Multivitamin] 1 tab PO DAILYCM #20 tab Oxycodone [Oxyir] 5 mg PO Q4H PRN PRN 5 Days #20 tab PRN Reason: Mod-Severe Pain (-04/09) Primary Care Physician: Jose Aguilar MD [Primary Care Provider] - Please follow up with your Primary Care Physician in: 2 weeks Disposition: [facility] facility Minutes spent on discharge:: 35 Patient Condition:: Stable Medical Necessity - Tobacco Use Smoking Status: Never smoker Tobacco Use: Non-smoker Meaningful Use Info Meaningful Use Diagnoses (Choose all that apply): None applicable
[2017-09-20 15:00] VITALS: BP 136/52; PULSE 66; RESP 20; TEMP 36.6; O2SAT 94
== END 2017-09-20 16:12 | disposition skilled nursing facility (03) ==
LOC: ED 21:50 → MS2 23:39
PROVIDERS: Emergency Provider Emergency Medicine; Family Provider Family Medicine; PCP Family Medicine; Visit Provider Internal Medicine
DX: S22.20XA Unspecified fracture of sternum, initial encounter for closed fracture (principal); W18.39XA Other fall on same level, initial encounter; Y93.89 Activity, other specified; Y92.009 Unspecified place in unspecified non-institutional (private) residence as the place of occurrence of the external cause; E55.9 Vitamin D deficiency, unspecified; K44.9 Diaphragmatic hernia without obstruction or gangrene; D50.9 Iron deficiency anemia, unspecified; N28.1 Cyst of kidney, acquired; K57.90 Diverticulosis of intestine, part unspecified, without perforation or abscess without bleeding; K42.9 Umbilical hernia without obstruction or gangrene
CPT/HCPCS: 36415; 71260; 74177; 80053; 82306; 83690; 84484; 85025; 93005; 96361; 96372; 96374; 96375; 96376; 97110; 97162; 97166; 97535; 99218; 99284; J7030; Q9967; A4216; G0378; J2405

== ENCOUNTER → 2018-02-14 15:11 | Outpatient (CLI) | payer MEDICARE, SELFPAY ==
[2018-02-14 16:52] LABS: Anion Gap 10 (5-15); BUN 14 mg/dL (7-18); BUN/Creat Ratio 17.1 RATIO (10-20); Calcium,Total 8.6 mg/dL (8.5-10.1); Chloride 108 mmol/L (98-107); Creatinine, Serum 0.82 mg/dL (0.55-1.02); EST Glomerular Filtration Rate 71 mL/min (>60); Est Glom Filt Rate - Afr Amer 86 mL/min (>60); Glucose 108 mg/dL (74-106); Potassium 3.6 mmol/L (3.5-5.1); Sodium Level 142 mmol/L (136-145)
== END ==
PROVIDERS: Family Provider Family Medicine; PCP Family Medicine; Visit Provider Family Medicine
DX: R60.9 Edema, unspecified (principal)
CPT/HCPCS: 36415; 71046; 80048

== ENCOUNTER → 2018-07-04 10:34 | Outpatient (CLI) | payer MEDICARE, SELFPAY ==
--- NOTE | 2018-07-04 10:40 | RAD_ITS ---
STUDY: X-RAY - LUMBAR SPINE REASON FOR EXAM: Female, 82 years old. Back pain TECHNIQUE: 5 view(s) of the lumbar spine were obtained. COMPARISON: 10/24/2015 FINDINGS: Normal lumbar lordosis. There is no substantial scoliosis. There is a normal alignment of the vertebrae. There is diffuse demineralization with multi-level endplate spondylosis. Disc space narrowing similar at multiple levels but most conspicuous at L5-S1. Moderate facet arthropathy in the lower lumbar levels demonstrated. Compression deformity of L4 is stable when compared to the prior study. There is no demonstrated spondylolysis of the pars interarticulares. The soft tissue structures are unremarkable. RAD/L/S Spine Min 4 Views IMPRESSION: 1. Stable degenerative disc disease and facet arthropathy. 2. Stable chronic L4 compression fracture. Electronically Signed: Marcos Azul MD at 7:27 EST , Service support ,
== END ==
PROVIDERS: Family Provider Family Medicine; PCP Family Medicine; Referring Provider Anesthesiology Pain Medicine; Visit Provider Anesthesiology Pain Medicine
DX: M51.36 Other intervertebral disc degeneration, lumbar region (principal); M46.86 Other specified inflammatory spondylopathies, lumbar region; M48.56XA Collapsed vertebra, not elsewhere classified, lumbar region, initial encounter for fracture; M25.559 Pain in unspecified hip
CPT/HCPCS: 72110

== ENCOUNTER 2018-07-15 08:26 | Emergency (ER) | payer MEDICARE, SELFPAY ==
[2018-07-15 08:27] VITALS: BP 131/61; PULSE 64; RESP 18; TEMP 36.4; O2SAT 93; BMI 35.3
--- NOTE | 2018-07-15 08:48 | CT_ITS ---
STUDY: CT BRAIN WITHOUT CONTRAST REASON FOR EXAM: Female, 83 years old. Head injury due to a fall. RADIATION DOSAGE (If Supplied By Facility): CTDIvol = ( 44.99 ) mGy, DLP = ( 796.11 ) mGycm TECHNIQUE: Transaxial CT imaging of the brain was performed without administration of intravenous contrast material. Individualized dose optimization techniques were used for this CT. COMPARISON: None. FINDINGS: Normal soft tissue structures. Normal calvarium. There is moderate cerebral atrophy with widening of the extra-axial spaces and ventricular dilatation. There are areas of decreased attenuation within the white matter tracts of the supratentorial brain, consistent with microvascular disease changes. Normal basal ganglia and thalami. Normal brainstem. There is mild cerebellar atrophy. There is no intracranial hemorrhage. There are no findings of an acute ischemic infarction. Normal visualized paranasal sinuses. CT/Brain/Head without Contrast IMPRESSION: Chronic involutional changes of the brain. Electronically Signed: Pedro Alvares MD at 9:52 EST Tel [phone], Service support ,
--- NOTE | 2018-07-15 08:48 | RAD_ITS ---
STUDY: X-RAY - RIGHT WRIST REASON FOR EXAM: Female, 83 years old. Pain and deformity following a fall. TECHNIQUE: 2 view(s) of the wrist were obtained. COMPARISON: None. FINDINGS: Comminuted transverse fracture of the distal radial metaphysis with extension of the articular surface. There is evidence of dorsal facing. Nondisplaced distal ulnar fracture. Normal distal radioulnar articulation. Normal carpal bones. Normal carpal articulations. Normal carpometacarpal articulation of the thumb. Normal second through fifth carpometacarpal articulations. Normal visualized metacarpal bones. Soft tissue swelling. RAD/Wrist min 3 Views IMPRESSION: Comminuted fracture of the distal radial metaphysis with extension to the articular surface. Dorsal facing. Nondisplaced fracture of the distal ulna. Diffuse soft tissue swelling. Electronically Signed: Pedro Alvares MD at 10:23 EST Tel [phone], Service support ,
--- NOTE | 2018-07-15 08:49 | CT_ITS ---
STUDY: CT CERVICAL SPINE WITHOUT CONTRAST REASON FOR EXAM: Female, 83 years old. History of fall. RADIATION DOSAGE (If Supplied By Facility): CTDIvol = ( 22.71 ) mGy, DLP = ( 457.90 ) mGycm TECHNIQUE: High resolution transaxial imaging was performed without contrast material. Sagittal and coronal images were reconstructed. Individualized dose optimization techniques were used for this CT. COMPARISON: None FINDINGS: Normal craniovertebral junction. There are degenerative changes of the anterior atlantoaxial articulation. Normal odontoid process. There is straightening of the normal cervical lordosis. Normal vertebral bodies and posterior osseous elements. C2-3: Facet joint osteoarthritis and hypertrophy worse on the right side. No significant stenosis is seen. C3-4: Facet joint osteoarthritis and hypertrophy worse on the right side. Mild right neural foraminal stenosis. C4-5: Minimal degree of anterior listhesis of C4 on C5. Facet joint osteoarthritis and hypertrophy worse on the left side. Posterior spondylosis. Moderate degree of bilateral neural foraminal stenosis. C5-6: Moderate degree of disc space narrowing. Spondylosis. Uncovertebral arthrosis. Minimal bilateral neural foraminal stenosis. C6-7: Minimal loss of height of the superior endplate of the C6 vertebrae. Moderate degree of disc space narrowing. Facet joint osteoarthritis. Uncovertebral arthrosis. CT/Spine Cervical without Contras IMPRESSION: Multilevel degenerative changes, as described above. Electronically Signed: Pedro Alvares MD at 9:56 EST Tel [phone], Service support ,
--- NOTE | 2018-07-15 08:50 | RAD_ITS ---
STUDY: X-RAY - LEFT HIP REASON FOR EXAM: Female, 83 years old. Left hip pain following a fall. TECHNIQUE: 2 views of the hip. COMPARISON: None. FINDINGS: There are osteoarthritic changes of the femoral head with marginal osteophyte formation. There is osteoarthritic spur formation of the acetabular rim. There is severe articular joint space narrowing. Normal visualized superior and inferior pubic rami and ischial tuberosities. RAD/HIP, UNI W/ Pelvis 2-3 Views IMPRESSION: Marked degree of osteoarthritis of the left hip joint. An element of avascular necrosis should be ruled out No fracture or dislocation is seen. Electronically Signed: Pedro Alvares MD at 10:24 EST Tel [phone], Service support ,
--- NOTE | 2018-07-15 08:51 | ED.VISSUMM ---
- ER Visit Summary Date of Service: 07/15/18 Chief Complaint: Fall History of Present Illness: The patient is a 83 F who presents for injuries after a fall. Patient presents with deformity to the right wrist. Patient states she tripped and fell, does not know she lost consciousness, but did hit her head. She does not think she has any head injury. She denies any other complaints. Denies chest pain, shortness of breath, headache, abdominal pain, or injuries to the other extremities except for the right wrist. Chart review shows patient not on any blood thinners. Physical Examination: Vital signs: afebrile, hemodynamically stable, no hypoxia on room air General: well nourished, well developed, in no distress Skin: warm, dry, no rash, no pallor, no contusions, abrasions, lacerations noted HEENT: normocephalic and atraumatic on the scalp nontender with no soft tissue injuries noted; PERRL, EOMI, moist mucous membranes, no maxillofacial trauma, neck shows no midline tenderness deformities or step-offs Cardiovascular: regular rate and rhythm without murmurs, no peripheral edema, 2+ pulses all distal extremities, chest nontender Respiratory: No increased work of breathing, lungs are clear to auscultation bilaterally, no rales, rhonchi or wheezing Abdominal: Abdomen is soft, nontender with normoactive bowel sounds, no guarding or rebound, no masses MSK: Deformity and pain to the right wrist, radial pulses 2+, distal cap refill, sensation and motor function intact. No remedies or tenderness to palpation of the elbow on the humerus or shoulder. No injuries noted to the left upper extremity, patient has full active range of motion. Pain with logroll of the left lower extremity, patient unable to lift the left leg off the bed due to hip pain. Full active range of motion of the right lower extremity Neuro: Awake and alert, oriented to person, location, situation, month, year. No facial droop, sensation and motor function intact and symmetric Test Results: [ Clinical Impression(s) from Imaging Studies Brain CT 07/15/18 08:48 IMPRESSION: Chronic involutional changes of the brain. Electronically Signed: Pedro Alvares MD at 9:52 EST Tel [phone], Service support , Wrist X-Ray 07/15/18 08:48 IMPRESSION: Comminuted fracture of the distal radial metaphysis with extension to the articular surface. Dorsal facing. Nondisplaced fracture of the distal ulna. Diffuse soft tissue swelling. Electronically Signed: Pedro Alvares MD at 10:23 EST Tel [phone], Service support , Cervical Spine CT 07/15/18 08:49 IMPRESSION: Multilevel degenerative changes, as described above. Electronically Signed: Pedro Alvares MD at 9:56 EST Tel [phone], Service support , Hip/Pelvis X-Ray 07/15/18 08:50 IMPRESSION: Marked degree of osteoarthritis of the left hip joint. An element of avascular necrosis should be ruled out No fracture or dislocation is seen. Electronically Signed: Pedro Alvares MD at 10:24 EST Tel [phone], Service support , Medications Given Discontinued Medications Hydrocodone Bitart/Acetaminophen ([place] 5mg-325mg) 1 tablet PO X1 ONE Stop: 07/15/18 10:12 Last Admin: 07/15/18 10:27 Dose: 1 tablet Lidocaine HCl (Lidocaine Hcl 1% Mdv) 20 ml INFILT NOW STA Stop: 07/15/18 10:33 Last Admin: 07/15/18 11:34 Dose: 20 ml Morphine Sulfate () 4 mg SC X1 ONE Stop: 07/15/18 08:50 Last Admin: 07/15/18 09:06 Dose: 4 mg Emergency Department Course and Treatment: Because patient is elderly and fell, hitting her head, and is a poor historian, CT of the head and neck were performed. X-rays of the left hip and the right wrist were performed. Patient was given subcutaneous morphine for pain. CT head showed no intracranial hemorrhage or fracture. C-spine showed no fracture. Hip x-ray showed significant chronic changes but no acute fracture. Patient had a distal radius and ulna fracture. A hematoma block was performed with 1% lidocaine. The area was cleansed with Shur-Clens, and a 21-gauge needle was introduced into the fracture area. Blood was aspirated and 8 cc total of lidocaine were injected into the hematoma. Patient tolerated the procedure well. She had good anesthesia achieved with this. Manual reduction was then attempted and a sugar tong splint was placed using Ortho-Glass. Afterwards patient was able to wiggle all fingers, had brisk cap refill and sensation intact. Patient was placed in a sling. She was discussed with Dr. De La Garza, who will follow up with patient outpatient. Patient received [place] for pain. Chart review shows patient has been on oxycodone in the past for pain, that she was given a prescription for Percocet. She does use a walker at baseline and because of this fracture will not be able to use the walker safely in her assisted living facility. Social work discussed the patient with Rehana Stuart, and patient was able to be switched into the [facility] side of the facility. Patient was discharged directly to the [facility] facility and is to follow-up within the week with orthopedics. Plan discussed with family who were all in agreement. At time of discharge, patient's pain was still well controlled, she was able to wiggle all fingers, color was good, brisk cap refill, and sensation intact. Treatment Plan: [] Disposition: [] Impression: Comminuted distal radius fracture of the right arm, distal ulnar fracture of the right arm This note was generated with [employer] dictation software. It may contain incorrect words, spelling, and punctuation that were not noted in review of the chart prior to signing ED Disposition - Plan for ED Patient: Disposition: [facility] Facility Chief Complaint: Upper Extremity Injury Instructions: ED Fx Forearm Radius Ulna Redu Requ Prescriptions: Oxycodone HCl/Acetaminophen [Percocet 5/325] 1 tab PO Q6H PRN PRN 5 Days #15 tab PRN Reason: Pain Referrals: Jose Aguilar MD [Primary Care Provider] - 3-5 Days if not improving Tyrone De La Garza DO [STAFF PHYSICIAN] - As soon as possible Additional Instructions: You have a right wrist fracture that will require evaluation and further treatment by an orthopedic doctor. Please follow-up with orthopedics as soon as possible, definitely within 1 week. Keep the splint in place. Elevate the arm as much as possible. Use Tylenol as needed for mild to moderate pain and use the Percocet as needed for severe pain. Do not take more than 3000 mg of Tylenol total in 1 day. If you have any worsening of your condition or any new concerning symptoms, please return immediately to the emergency department for another evaluation.
--- NOTE | 2018-07-15 08:54 | ED.DCSUM_ITS ---
- ER Visit Summary Date of Service: 07/15/18 Chief Complaint: Fall History of Present Illness: The patient is a 83 F who presents for injuries after a fall. Patient presents with deformity to the right wrist. Patient states she tripped and fell, does not know she lost consciousness, but did hit her head. She does not think she has any head injury. She denies any other complaints. Denies chest pain, shortness of breath, headache, abdominal pain, or injuries to the other extremities except for the right wrist. Chart review shows patient not on any blood thinners. Physical Examination: Vital signs: afebrile, hemodynamically stable, no hypoxia on room air General: well nourished, well developed, in no distress Skin: warm, dry, no rash, no pallor, no contusions, abrasions, lacerations noted HEENT: normocephalic and atraumatic on the scalp nontender with no soft tissue injuries noted; PERRL, EOMI, moist mucous membranes, no maxillofacial trauma, neck shows no midline tenderness deformities or step-offs Cardiovascular: regular rate and rhythm without murmurs, no peripheral edema, 2+ pulses all distal extremities, chest nontender Respiratory: No increased work of breathing, lungs are clear to auscultation bilaterally, no rales, rhonchi or wheezing Abdominal: Abdomen is soft, nontender with normoactive bowel sounds, no guarding or rebound, no masses MSK: Deformity and pain to the right wrist, radial pulses 2+, distal cap refill, sensation and motor function intact. No remedies or tenderness to palpation of the elbow on the humerus or shoulder. No injuries noted to the left upper extremity, patient has full active range of motion. Pain with logroll of the left lower extremity, patient unable to lift the left leg off the bed due to hip pain. Full active range of motion of the right lower extremity Neuro: Awake and alert, oriented to person, location, situation, month, year. No facial droop, sensation and motor function intact and symmetric Test Results: [ Clinical Impression(s) from Imaging Studies Brain CT 07/15/18 08:48 IMPRESSION: Chronic involutional changes of the brain. Electronically Signed: Pedro Alvares MD at 9:52 EST Tel [phone], Service support , Wrist X-Ray 07/15/18 08:48 IMPRESSION: Comminuted fracture of the distal radial metaphysis with extension to the articular surface. Dorsal facing. Nondisplaced fracture of the distal ulna. Diffuse soft tissue swelling. Electronically Signed: Pedor Alvares MD at 10:23 EST Tel [phone], Service support , Cervical Spine CT 07/15/18 08:49 IMPRESSION: Multilevel degenerative changes, as described above. 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 An element of avascular necrosis should be ruled out No fracture or dislocation is seen. Electronically Signed: Pedro Alvares MD at 10:24 EST Tel [phone], Service support , Medications Given Discontinued Medications Hydrocodone Bitart/Acetaminophen ([place] 5mg-325mg) 1 tablet PO X1 ONE Stop: 07/15/18 10:12 Last Admin: 07/15/18 10:27 Dose: 1 tablet Lidocaine HCl (Lidocaine Hcl 1% Mdv) 20 ml INFILT NOW STA Stop: 07/15/18 10:33 Last Admin: 07/15/18 11:34 Dose: 20 ml Morphine Sulfate () 4 mg SC X1 ONE Stop: 07/15/18 08:50 Last Admin: 07/15/18 09:06 Dose: 4 mg Emergency Department Course and Treatment: Because patient is elderly and fell, hitting her head, and is a poor historian, CT of the head and neck were performed. X-rays of the left hip and the right wrist were performed. Patient was given subcutaneous morphine for pain. CT head showed no intracranial hemorrhage or fracture. C-spine showed no fracture. Hip x-ray showed significant chronic changes but no acute fracture. Patient had a distal radius and ulna fracture. A hematoma block was performed with 1% lidocaine. The area was cleansed with Shur-Clens, and a 21-gauge needle was introduced into the fracture area. Blood was aspirated and 8 cc total of lidocaine were injected into the hematoma. Patient tolerated the procedure well. She had good anesthesia achieved with this. Manual reduction was then attempted and a sugar tong splint was placed using Ortho-Glass. Afterwards patient was able to wiggle all fingers, had brisk cap refill and sensation intact. Patient was placed in a sling. She was discussed with Dr. De La Garza, who will follow up with patient outpatient. Patient received [place] for pain. Chart review shows patient has been on oxycodone in the past for pain, that she was given a prescription for Percocet. She does use a walker at baseline and because of this fracture will not be able to use the walker safely in her assisted living facility. Social work discussed the patient with Rehana Stuart, and patient was able to be switched into the [facility] side of the facility. Patient was discharged directly to the [facility] facility and is to follow-up within the week with orthopedics. Plan discussed with family who were all in agreement. At time of discharge, patient's pain was still well controlled, she was able to wiggle all fingers, color was good, brisk cap refill, and sensation intact. Treatment Plan: [] Disposition: [] Impression: Comminuted distal radius fracture of the right arm, distal ulnar fracture of the right arm This note was generated with [employer] dictation software. It may contain incorrect words, spelling, and punctuation that were not noted in review of the chart prior to signing ED Disposition - Plan for ED Patient: Disposition: [facility] Facility Chief Complaint: Upper Extremity Injury Instructions: ED Fx Forearm Radius Ulna Redu Requ Prescriptions: Oxycodone HCl/Acetaminophen [Percocet 5/325] 1 tab PO Q6H PRN PRN 5 Days #15 tab PRN Reason: Pain Referrals: Jose Aguilar MD [Primary Care Provider] - 3-5 Days if not improving Tyrone De La Garza DO [STAFF PHYSICIAN] - As soon as possible Additional Instructions: You have a right wrist fracture that will require evaluation and further treatment by an orthopedic doctor. Please follow-up with orthopedics as soon as possible, definitely within 1 week. Keep the splint in place. Elevate the arm as much as possible. Use Tylenol as needed for mild to moderate pain and use the Percocet as needed for severe pain. Do not take more than 3000 mg of Tylenol total in 1 day. If you have any worsening of your condition or any new concerning symptoms, please return immediately to the emergency department for another evaluation.
[2018-07-15] MEDS: Morphine 4 MG/ML Syringe SC (09:06)
[2018-07-15] MEDS: HYDROcodone Bitartrate/Apap 5/325 Tablet PO (10:27)
--- NOTE | 2018-07-15 12:40 | ED.DEP ---
ED Disposition - Plan for ED Patient: Disposition: [facility] Chief Complaint: Upper Extremity Injury Instructions: ED Fx Forearm Radius Ulna Redu Requ Prescriptions: Oxycodone HCl/Acetaminophen [Percocet 5/325] 1 tab PO Q6H PRN PRN 5 Days #15 tab PRN Reason: Pain Referrals: Jose Aguilar MD [Primary Care Provider] - 3-5 Days if not improving Tyrone De La Garza DO [STAFF PHYSICIAN] - As soon as possible Additional Instructions: You have a right wrist fracture that will require evaluation and further treatment by an orthopedic doctor. Please follow-up with orthopedics as soon as possible, definitely within 1 week. Keep the splint in place. Elevate the arm as much as possible. Use Tylenol as needed for mild to moderate pain and use the Percocet as needed for severe pain. Do not take more than 3000 mg of Tylenol total in 1 day. If you have any worsening of your condition or any new concerning symptoms, please return immediately to the emergency department for another evaluation.
[2018-07-15 12:42] VITALS: BP 125/60; PULSE 61; RESP 16; O2SAT 96
--- NOTE | 2018-07-15 13:45 | CM.ED ---
SOCIAL WORK ASSESSMENT REFERRAL DATE: 07/15/18 DATE OF ASSESSMENT: 07/15/18 INFORMANT: DR. GARCIA REASON FOR CONSULT: [facility] PLACEMENT INFORMATION OBTAINED FROM: PATIENT AND FAMILY IN ROOM LIVING ARRANGEMENTS: PT FROM ASSISTED LIVING SUPPORTS: STAFF FROM [facility] AND FRIENDS/FAMILY MENTAL HEALTH HX: PT AND FAMILY DENY ANY HX OF MENTAL HEALTH SUBSTANCE ABUSE HX: PT DENIES ANY HX OF SUBSTANCE ABUSE INTERVENTIONS: ASSIST WITH [facility] PLACEMENT PT UNABLE TO CONTINUE TO CARE FOR SELF AT [facility] WITH FX. ASSESSMENT: PT IS A 83 Y/O FEMALE WHO PRESENTS TO ED AFTER A FALL. PT WITH FX OF [facility]EARM. PT AND FAMILY REPORT PT WILL BE UNABLE TO CARE FOR SELF IN [facility] APARTMENT AND ARE REQUESTING PT BE ADMITTED TO [facility] AT [facility]. DR. GARCIA IN AGREEMENT. THIS WORKER SPOKE WITH WILLY AT [facility]. BED CONFIRMED. REFERRAL FAXED, PAS SUBMITTED, AND CERTIFICATION FOR TRANSFER TO EXTENDED CARE COMPLETED BY PHYSICIAN. TRANSPORT SET UP BY [employer]. PLAN: PRIVATE PAY TO [facility] UNTIL AUTH OBTAINED. WILLY AT [facility] TO INITIATE PRECERT THROUGH [employer].
--- NOTE | 2018-07-15 14:09 | ED.RN ---
called report to [facility] at [facility]
[2018-07-15 14:16] VITALS: BP 141/62; PULSE 71; RESP 16; O2SAT 92
== END 2018-07-15 15:00 | disposition skilled nursing facility (03) ==
PROVIDERS: Emergency Provider Emergency Medicine; Family Provider Family Medicine; PCP Family Medicine
DX: S52.591A Other fractures of lower end of right radius, initial encounter for closed fracture (principal); S52.601A Unspecified fracture of lower end of right ulna, initial encounter for closed fracture; W01.0XXA Fall on same level from slipping, tripping and stumbling without subsequent striking against object, initial encounter; Y93.9 Activity, unspecified; Y92.9 Unspecified place or not applicable
CPT/HCPCS: 25605; 70450; 72125; 73110; 73502; 96374; 99283